=== PATIENT | female | born 1985 | race Asian ===

== ENCOUNTER 2016-11-28 10:23 | Inpatient (IN) | payer OTHER ==
[~2016-11-28] VITALS: Ht 165.1 cm; Wt 100.5 kg
[2016-11-28 10:45] VITALS: BP 127/59
[2016-11-28] MEDS ORDERED: CALC-126 PO (11:12)
[2016-11-28] MEDS ORDERED: NPH,100V SQ (11:12)
[2016-11-28] MEDS ORDERED: PREN1TAB69 PO (11:12)
[2016-11-28] MEDS ORDERED: LACTATED RINGERS 1,000 ML IV PRN (16:23)
[2016-11-28] MEDS ORDERED: BETAMETHASONE 6 MG/ML, 5ML IM ONE (17:02)
[2016-11-28] MEDS: BETAMETHASONE 6 MG/ML, 5ML IM SCH (17:07)
[2016-11-28 17:09] LABS: HEMATOCRIT 41.4 % (34.6-47.8); HEMOGLOBIN 13.9 g/dL (11.7-16.4); WHITE BLOOD COUNT 17.8 x10^3/uL (3.4-10)
[2016-11-28 17:35] LABS: BLOOD UREA NITROGEN 10 mg/dL (7-18)
[2016-11-28 17:40] LABS: ASPARTATE AMINO TRANSFERASE 22 U/L (15-37)
[2016-11-28] MEDS: INSULIN REGULAR, HUMAN 100 UNIT/ML 3ML VIAL SS SQ SCH (21:07)
[2016-11-28] MEDS: INSULIN NPH HUMAN 100 UNIT/ML, 3ML VIAL SQ-INSULIN SCH (21:08)
[2016-11-29] MEDS: INSULIN REGULAR, HUMAN 100 UNIT/ML 3ML VIAL SS SQ SCH ×3 (08:00→18:00)
[2016-11-29 10:25] LABS: AMNI OBC PASS; AMNISURE NEGATIVE (NEGATIVE)
[2016-11-29] MEDS: BETAMETHASONE 6 MG/ML, 5ML IM SCH (17:03)
[2016-11-29] MEDS: INSULIN NPH HUMAN 100 UNIT/ML, 3ML VIAL SQ-INSULIN SCH (21:02)
[2016-11-30] MEDS ORDERED: METOCLOPRAMIDE 5 MG/ML, 2ML ONE (07:32)
[2016-11-30] MEDS ORDERED: SODIUM CITRATE/CITRIC ACID 30 ML UDC ONE (07:32)
[2016-11-30] MEDS ORDERED: morphine SULFATE/PF 1 MG/ML, 10ML ONE (07:35)
[2016-11-30] MEDS ORDERED: LACTATED RINGERS 1,000 ML IV SCH ×2 (07:41→09:43)
[2016-11-30] MEDS ORDERED: OXYTOCIN 30U/ 0.9% NaCL 500ML 500 ML IV SCH (07:41)
[2016-11-30] MEDS: INSULIN REGULAR, HUMAN 100 UNIT/ML 3ML VIAL SS SQ SCH ×3 (08:00→18:00)
[2016-11-30] MEDS ORDERED: SODIUM CITRATE/CITRIC ACID 30 ML UDC PO ONE (08:00)
[2016-11-30] MEDS ORDERED: METOCLOPRAMIDE 5 MG/ML, 2ML IV ONE (08:00)
[2016-11-30] MEDS ORDERED: LACTATED RINGERS 1,000 ML IVBOLUS ONE (08:00)
[2016-11-30] MEDS ORDERED: OXYTOCIN 30U/ 0.9% NaCL 500ML 500 ML ONE (08:09)
[2016-11-30 08:14] LABS: HEMATOCRIT 39.6 % (34.6-47.8); HEMOGLOBIN 13.5 g/dL (11.7-16.4); WHITE BLOOD COUNT 19.9 x10^3/uL (3.4-10)
[2016-11-30] MEDS ORDERED: NEWBORN KIT ONE (08:26)
[2016-11-30] MEDS: OXYTOCIN 30U/ 0.9% NaCL 500ML 500 ML IV SCH ×2 (09:43→19:43)
[2016-11-30] MEDS ORDERED: ONDANSETRON 2MG/ML, 2ML IV PRN (10:00)
[2016-11-30] MEDS ORDERED: SIMETHICONE 80 MG CHEW TAB PO PRN (10:00)
[2016-11-30] MEDS ORDERED: ACETAMINOPHEN 325 MG TABLET PO PRN (10:00)
[2016-11-30] MEDS ORDERED: CALCIUM CARBONATE 500 MG TAB.CHEW PO PRN (10:00)
[2016-11-30] MEDS ORDERED: MISOPROSTOL 200 MCG TABLET PR PRN (10:00)
[2016-11-30] MEDS ORDERED: BISACODYL 10 MG SUPP PR PRN (10:00)
[2016-11-30] MEDS ORDERED: GLYCERIN ADULT SUPP PR PRN (10:00)
[2016-11-30] MEDS ORDERED: KETOROLAC 30 MG/1 ML ONE (10:51)
[2016-11-30] MEDS: KETOROLAC 30 MG/1 ML IV SCH ×3 (10:59→23:51)
[2016-11-30] MEDS: LACTATED RINGERS 1,000 ML IV SCH ×2 (11:00→19:43)
[2016-11-30 12:15] VITALS: BP 119/62
[2016-11-30 16:45] VITALS: BP 110/61
[2016-11-30 17:03] LABS: HEMATOCRIT 40.1 % (34.6-47.8); HEMOGLOBIN 13.4 g/dL (11.7-16.4); WHITE BLOOD COUNT 24.5 x10^3/uL (3.4-10)
[2016-11-30 20:30] VITALS: BP 97/49
[2016-11-30] MEDS: INSULIN NPH HUMAN 100 UNIT/ML, 3ML VIAL SQ-INSULIN SCH (21:12)
[2016-11-30 23:55] VITALS: BP 109/62
[2016-12-01] MEDS: OXYcodone/APAP 5/325MG TABLET PO PRN ×4 (04:44→22:45)
[2016-12-01 05:25] VITALS: BP 122/71
[2016-12-01] MEDS: KETOROLAC 30 MG/1 ML IV SCH ×3 (05:34→18:04)
[2016-12-01] MEDS: OXYTOCIN 30U/ 0.9% NaCL 500ML 500 ML IV SCH ×2 (05:43→15:43)
[2016-12-01] MEDS: LACTATED RINGERS 1,000 ML IV SCH ×2 (05:43→15:43)
[2016-12-01 07:15] VITALS: BP 103/60
[2016-12-01] MEDS: PRENATAL VIT/IRON/FA 1 EACH TABLET PO SCH (09:00)
[2016-12-01 19:55] VITALS: BP 100/64
[2016-12-01] MEDS: DOCUSATE 100 MG CAPSULE PO PRN (22:45)
[2016-12-02] MEDS: KETOROLAC 30 MG/1 ML IV SCH ×2 (00:37→05:51)
[2016-12-02] MEDS: OXYcodone/APAP 5/325MG TABLET PO PRN ×4 (05:51→20:49)
[2016-12-02 08:20] VITALS: BP 109/76
[2016-12-02] MEDS: DOCUSATE 100 MG CAPSULE PO PRN ×2 (10:52→20:49)
[2016-12-02] MEDS: IBUPROFEN 800 MG TABLET PO PRN ×2 (12:16→20:49)
[2016-12-02] MEDS: PRENATAL VIT/IRON/FA 1 EACH TABLET PO SCH (21:38)
[2016-12-02 21:45] VITALS: BP 119/66
[2016-12-03] MEDS: OXYcodone/APAP 5/325MG TABLET PO PRN ×4 (01:37→19:19)
[2016-12-03] MEDS ORDERED: DOCU-131 PO (03:54)
[2016-12-03] MEDS ORDERED: OXYC-302 PO (03:54)
[2016-12-03] MEDS ORDERED: IBUP-1222 PO (03:54)
[2016-12-03] MEDS: IBUPROFEN 800 MG TABLET PO PRN ×3 (04:42→21:46)
[2016-12-03] MEDS: PRENATAL VIT/IRON/FA 1 EACH TABLET PO SCH (08:41)
[2016-12-03] MEDS: DOCUSATE 100 MG CAPSULE PO PRN ×2 (08:41→19:19)
[2016-12-03 09:10] VITALS: BP 110/60
[2016-12-03 19:35] VITALS: BP 117/71
[2016-12-04] MEDS: OXYcodone/APAP 5/325MG TABLET PO PRN ×4 (00:34→15:15)
[2016-12-04] MEDS: IBUPROFEN 800 MG TABLET PO PRN ×2 (05:58→15:15)
[2016-12-04] MEDS: PRENATAL VIT/IRON/FA 1 EACH TABLET PO SCH (07:15)
[2016-12-04] MEDS: DOCUSATE 100 MG CAPSULE PO PRN (07:15)
[2016-12-04 07:40] VITALS: BP 108/68
== END 2016-12-04 17:39 | disposition home or self-care (01) | DRG 765 ==
LOC: LDOP 10:23 → LDIP 17:47 → UNDOADMIN 17:49 → 2NW 11-30 11:32
PROVIDERS: ADMIT Obstetrics & Gynecology; ATTEND Obstetrics & Gynecology
PROC: 10D00Z1 Extraction of Products of Conception, Low, Open Approach (ICD-10-PCS; principal; 2016-11-30)
DX: O60.14X0 Preterm labor third trimester with preterm delivery third trimester, not applicable or unspecified (principal); O41.03X0 Oligohydramnios, third trimester, not applicable or unspecified; D25.2 Subserosal leiomyoma of uterus; D25.9 Leiomyoma of uterus, unspecified; O34.13 Maternal care for benign tumor of corpus uteri, third trimester; O24.429 Gestational diabetes mellitus in childbirth, unspecified control; Z3A.36 36 weeks gestation of pregnancy; Z37.0 Single live birth; O24.424 Gestational diabetes mellitus in childbirth, insulin controlled; E28.2 Polycystic ovarian syndrome; O76 Abnormality in fetal heart rate and rhythm complicating labor and delivery
CPT/HCPCS: 36415; 76819; 80053; 82962; 84112; 85025; 86850; 86900; 87081; J0702; J1815; J1885; J2274; J2590; J2765; J7120